=== PATIENT | male | born 1945 | race Caucasian/White ===

== ENCOUNTER 2019-08-24 08:35 | Outpatient (CLI) | payer MEDICARE | END 2019-08-24 08:36 | disposition home or self-care (01) | LOC: CTENTCT 08:35 | PROVIDERS: ATTEND Otolaryngology Plastic Surgery within the Head & Neck | DX: J32.9 Chronic sinusitis, unspecified (principal) | CPT/HCPCS: 70486 ==

== ENCOUNTER 2019-08-27 06:25 | Outpatient (CLI) | payer MEDICARE, OTHER ==
[2019-08-27 11:28] LABS: Hemoglobin 18.1 g/dL (14.0-18.0)
[2019-08-27 12:49] LABS: Anion Gap 13 mmol/L (10-20); BUN (Urea Nitrogen) 26 mg/dL (8.4-25.7); Calc. Creatinine Clearance 0 mL/min (70-130); Calcium 9.3 mg/dL (7.8-10.44); Carbon Dioxide 23 mmol/L (23-31); Chloride 106 mmol/L (98-107); Estimated GFR-MDRD 51; Glucose 75 mg/dL (83-110); Potassium 4.3 mmol/L (3.5-5.1); Sodium 138 mmol/L (136-145)
[2019-08-28 13:13] LABS: SARS-CoV-2 MS2 Positive; SARS-CoV-2 N Gene Negative; SARS-CoV-2 S Gene Negative; SARS-CoV-2 orf1ab Negative
== END 2019-08-27 06:26 | disposition home or self-care (01) ==
LOC: LABBT 06:25
PROVIDERS: ATTEND Otolaryngology Plastic Surgery within the Head & Neck
DX: Z01.818 Encounter for other preprocedural examination (principal); Z11.59 Encounter for screening for other viral diseases; J32.9 Chronic sinusitis, unspecified; J30.9 Allergic rhinitis, unspecified; J34.3 Hypertrophy of nasal turbinates; Z87.828 Personal history of other (healed) physical injury and trauma
CPT/HCPCS: 80048; 85014; 85018; 93005; U0003; 87635; 93010

== ENCOUNTER 2019-09-01 08:26 | Day surgery (SDC) | payer MEDICARE ==
[2019-08-26 14:01] VITALS: BMI 31.3
[2019-09-01] MEDS ORDERED: Fentanyl 100 MCG/2 ML VIAL ONE (08:30)
[2019-09-01] MEDS ORDERED: AFRIN NASAL MIST 15 ML BOT ONE ×2 (08:55→09:34)
[2019-09-01] MEDS ORDERED: Lidocaine 1% w/Epinephrine 1:100K 20 ML VIAL ONE (09:34)
[2019-09-01] MEDS ORDERED: Rocuronium Bromide 10 MG/ML (10ML VIAL) ONE (09:38)
[2019-09-01] MEDS ORDERED: EPHEDRINE 25 MG/5 ML SYRINGE ONE (09:38)
[2019-09-01] MEDS ORDERED: PROPOFOL 200 MG/20 ML VIAL ONE (09:38)
[2019-09-01] MEDS ORDERED: Dexamethasone 20 MG/5 ML VIAL ONE (09:38)
[2019-09-01] MEDS ORDERED: Ondansetron PF 4 MG/2 ML Vial ONE (09:38)
[2019-09-01] MEDS ORDERED: Lidocaine 1% PF 5 ML VIAL ONE (09:38)
[2019-09-01] MEDS ORDERED: hydrALAZINE 20 MG/ML VIAL ONE (11:01)
[2019-09-01] MEDS ORDERED: Morphine 4 MG/ML VIAL ONE (11:08)
[2019-09-01] MEDS ORDERED: Hydrocodone-Acetamin 15 ML UDCUP ONE (11:33)
--- NOTE | 2019-09-02 12:32 | OP ---
DATE OF PROCEDURE: 09/01/2019 PREOPERATIVE DIAGNOSES: 1. Chronic rhinosinusitis. 2. Bilateral inferior turbinate hypertrophy. 3. Nasal obstruction. POSTOPERATIVE DIAGNOSES: 1. Chronic rhinosinusitis. 2. Bilateral inferior turbinate hypertrophy. 3. Nasal obstruction. PROCEDURES PERFORMED: 1. Bilateral endoscopic sinus surgery, total ethmoidectomy with sphenoidotomies including removal of tissue. 2. Bilateral endoscopic sinus surgery, maxillary antrostomies with removal of tissue. 3. Bilateral endoscopic sinus surgery, frontal sinus exploration. 4. Bilateral inferior turbinate submucosal resection. 5. [employer] stereotactic navigational cranial base surgery. ESTIMATED BLOOD LOSS: 20 mL. COMPLICATIONS: None. ANESTHESIA: GETA. DESCRIPTION OF PROCEDURE: The patient was taken to the operating room, placed supine on the table. General endotracheal anesthesia was obtained by the Anesthesia staff. Tube was secured in the left lower lip. The patient was placed in the beach chair position. Following this, Afrin pledgets were placed in the nasal cavity as the patient was prepped and draped for standard nasal procedure. Following this, a 0-degree endoscope was advanced in the nasal cavity. Afrin pledgets were removed. 1% lidocaine with 1:100,000 epinephrine was injected into the inferior turbinates, middle turbinates, and lateral nasal wall bilaterally. Following this, the middle turbinates were gently medialized using a [place] elevator and the uncinate process was visualized bilaterally. Following this, the uncinate process was anteriorly fractured using a ball-ended probe bilaterally and the 0-degree microdebrider and the upbiting [place] forceps were used to remove the uncinate process bilaterally. Following this, the maxillary sinus ostia was identified and was widened using the 40-degree microdebrider and straight Blakesley forceps bilaterally. The patient had large Doyle cells protruding into the maxillary sinus. Bone and tissue were removed using the curved microdebrider and 90 degree upbiting Blakesley forceps bilaterally. Following this, the ethmoidal bulla was identified and was punctured on its medial and inferior aspect using the 0-degree microdebrider, ethmoidal bulla was removed using the microdebrider and upbiting Blakesley forceps. Following this, the grand lamella was identified and was punctured into the posterior ethmoidal cells using 0-degree microdebrider. Working from posterior to anterior, the ethmoidal cells were opened in a mucosal sparing technique using the image guided stereotactic instruments. Following this, the sphenoid sinus was identified with the image-guided system and anterior wall of the sphenoid sinus was punctured using the 0-degree microdebrider bilaterally. The sphenoid sinus ostia was then widened in a medial inferior direction by removing polypoid tissue and bone with the 0-degree microdebrider and upbiting Blakesley forceps. Following this, the 45-degree endoscope along with a 40-degree microdebrider blade were used to further identify the frontal recess cells, which were further opened. Following this, the patient had large frontal air cells extending into the frontal sinus. These air cells were opened using the navigational system with the curved microdebrider and curved suctions. Following this, the inferior turbinates were punctured on the anterior inferior aspect and submucosal resection was performed of the anterior and inferior aspect of the inferior turbinates bilaterally. Please note, prior to beginning the procedure, the [employer]re[employer] image-guided system was set up, calibrated, and was noted to be within 1 mm of accuracy. Following this, nasal cavity was irrigated. Nasal pore packing was placed within the middle meatus. The patient tolerated the procedure well. Job ID: [id number]
== END 2019-09-01 12:55 | disposition home or self-care (01) ==
LOC: SDC 08:26
PROVIDERS: ATTEND Otolaryngology Plastic Surgery within the Head & Neck
PROC: 8E09XBZ Computer Assisted Procedure of Head and Neck Region (ICD-10-PCS; principal; 2019-09-01)
PROC: 09TV8ZZ Resection of Left Ethmoid Sinus, Via Natural or Artificial Opening Endoscopic (ICD-10-PCS; 2019-09-01)
PROC: 09TU8ZZ Resection of Right Ethmoid Sinus, Via Natural or Artificial Opening Endoscopic (ICD-10-PCS; 2019-09-01)
PROC: 09BR8ZZ Excision of Left Maxillary Sinus, Via Natural or Artificial Opening Endoscopic (ICD-10-PCS; 2019-09-01)
PROC: 09BW8ZZ Excision of Right Sphenoid Sinus, Via Natural or Artificial Opening Endoscopic (ICD-10-PCS; 2019-09-01)
PROC: 09BX8ZZ Excision of Left Sphenoid Sinus, Via Natural or Artificial Opening Endoscopic (ICD-10-PCS; 2019-09-01)
PROC: 09BQ8ZZ Excision of Right Maxillary Sinus, Via Natural or Artificial Opening Endoscopic (ICD-10-PCS; 2019-09-01)
PROC: 099T8ZZ Drainage of Left Frontal Sinus, Via Natural or Artificial Opening Endoscopic (ICD-10-PCS; 2019-09-01)
PROC: 099S8ZZ Drainage of Right Frontal Sinus, Via Natural or Artificial Opening Endoscopic (ICD-10-PCS; 2019-09-01)
PROC: 09TL8ZZ Resection of Nasal Turbinate, Via Natural or Artificial Opening Endoscopic (ICD-10-PCS; 2019-09-01)
DX: J32.4 Chronic pansinusitis (principal); J34.3 Hypertrophy of nasal turbinates; J34.89 Other specified disorders of nose and nasal sinuses; J30.9 Allergic rhinitis, unspecified; Q61.3 Polycystic kidney, unspecified; H93.19 Tinnitus, unspecified ear; H93.8X3 Other specified disorders of ear, bilateral; Z87.828 Personal history of other (healed) physical injury and trauma; Z79.899 Other long term (current) drug therapy
CPT/HCPCS: J0360; J1100; J2001; J2270; J2405; J2704; J3010

== ENCOUNTER 2022-01-17 09:54 | Outpatient (CLI) | payer MEDICARE ==
[2022-01-17 11:10] LABS: Hemoglobin 17.1 g/dL (13.5-17.5)
[2022-01-17 11:11] LABS: Anion Gap 12 mmol/L (10-20); BUN (Urea Nitrogen) 28 mg/dL (8.4-25.7); Calc. Creatinine Clearance 0 mL/min (70-130); Calcium 9.4 mg/dL (7.8-10.44); Carbon Dioxide 26 mmol/L (23-31); Chloride 105 mmol/L (98-107); Estimated GFR 54; Glucose 65 mg/dL (83-110); Potassium 4.7 mmol/L (3.5-5.1); Sodium 138 mmol/L (136-145)
== END 2022-01-17 09:55 | disposition home or self-care (01) ==
LOC: LABBT 09:54
PROVIDERS: ATTEND Student in an Organized Health Care Education/Training Program
DX: Z01.818 Encounter for other preprocedural examination (principal); H61 Other disorders of external ear; H69.83 Other specified disorders of Eustachian tube, bilateral; H90.5 Unspecified sensorineural hearing loss; Z97.4 Presence of external hearing-aid
CPT/HCPCS: 80048; 85014; 85018; 93005; 93010